=== PATIENT | male | born 1995 | race Caucasian/White ===

== ENCOUNTER 2016-12-04 08:14 | Emergency (ER) | payer SELFPAY | END 2016-12-04 10:18 | disposition home or self-care (01) | LOC: D.ER 08:14 | DX: K02.9 Dental caries, unspecified (principal); K04.7 Periapical abscess without sinus ==

== ENCOUNTER 2019-02-20 14:02 | Emergency (ER) | payer SELFPAY ==
[~2019-02-20] VITALS: Ht 185.4 cm; Wt 127.3 kg
[2019-02-20 14:13] VITALS: BP 124/77; Ht 185.4 cm; Wt 127.3 kg
== END 2019-02-20 16:58 | disposition left against medical advice (07) ==
LOC: D.ER 14:02
DX: R51 Headache (principal)